=== PATIENT | female | born 2000 | race Caucasian/White ===

== ENCOUNTER 2021-01-08 06:34 | Emergency (ER) | payer BC, OTHER ==
[2021-01-08 06:51] VITALS: BP 126/82; PULSE 91; O2SAT 99
--- NOTE | 2021-01-08 06:51 | ERPHSYRPT ---
- History of Present Illness Time Seen by Provider: 01/08/21 06:49 Source: patient Exam Limitations: no limitations Physician History: Patient is a 20-year-old employee of [employer] who presents with a complaint of a needlestick from an unknown source which occurred to her right index finger 1 month ago. She has apparently been here several times without an order and finally her employer sent her today to have her post exposure work-up. Timing/Duration: week(s) (4) Location: hands (X finger) Allergies/Adverse Reactions: lorazepam [From Ativan] Allergy (Verified 03/22/12 22:08) Home Medications: No Home Meds 03/22/12 [History] Hx Tetanus, Diphtheria Vaccination/Date Given: Yes Hx Influenza Vaccination/Date Given: No Hx Pneumococcal Vaccination/Date Given: No - Review of Systems Constitutional: No Fever, No Chills Eyes: No Symptoms Ears, Nose, & Throat: No Symptoms Respiratory: No Cough, No Dyspnea Cardiac: No Chest Pain, No Edema, No Syncope Abdominal/Gastrointestinal: No Abdominal Pain, No Nausea, No Vomiting, No Diarrhea Genitourinary Symptoms: No Dysuria Musculoskeletal: No Back Pain, No Neck Pain Skin: No Rash Neurological: No Dizziness, No Focal Weakness, No Sensory Changes Psychological: No Symptoms Endocrine: No Symptoms All Other Systems: Reviewed and Negative - Past Medical History Pertinent Past Medical History: Yes Neurological History: No Pertinent History Cardiac History: No Pertinent History Respiratory History: No Pertinent History Endocrine Medical History: No Pertinent History Musculoskeletal History: No Pertinent History Other Medical History: 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 - Past Surgical History Past Surgical History: No - Social History Smoking Status: Never smoker Exposure to second hand smoke: No Drug Use: none Patient Lives Alone: No - Nursing Vital Signs Nursing Vital Signs: Initial Vital Signs Temperature 98.0 F 01/08/21 06:41 Pulse Rate 91 H 01/08/21 06:41 Respiratory Rate 16 01/08/21 06:41 Blood Pressure 126/82 01/08/21 06:41 O2 Sat by Pulse Oximetry 99 01/08/21 06:41 - Physical Exam General Appearance: no apparent distress, alert Eye Exam: PERRL/EOMI, eyes nml inspection Ears, Nose, Throat Exam: normal ENT inspection, pharynx normal, moist mucous membranes Neck Exam: normal inspection, non-tender, supple, full range of motion Respiratory Exam: normal breath sounds, lungs clear, No respiratory distress Cardiovascular Exam: regular rate/rhythm, normal heart sounds Gastrointestinal/Abdomen Exam: soft, mass, No tenderness Back Exam: normal inspection, normal range of motion, No CVA tenderness, No vertebral tenderness Extremity Exam: normal inspection, normal range of motion Neurologic Exam: alert, oriented x 3, cooperative, normal mood/affect, sensation nml, No motor deficits Skin Exam: normal color, warm, dry - Course Nursing assessment & vital signs reviewed: Yes Ordered Tests: Active Orders 24 hr Category Date Time Status Wound Care STAT Care 01/08/21 06:52 Ordered - Progress Progress: unchanged - Departure Departure Disposition: Home Clinical Impression: Needlestick injury accident with exposure to body fluid Condition: Stable Critical Care Time: No Referrals: VAUGHN VIGIL NP [Primary Care Provider] - Instructions: Post-Exposure Prophylaxis
== END 2021-01-08 07:21 | disposition home or self-care (01) ==
LOC: ED 06:34
DX: S61.230A Puncture wound without foreign body of right index finger without damage to nail, initial encounter (principal); W46.1XXA Contact with contaminated hypodermic needle, initial encounter; Y93.89 Activity, other specified; Y92.129 Unspecified place in nursing home as the place of occurrence of the external cause; Y99.0 Civilian activity done for income or pay
CPT/HCPCS: 36415; 86317; 86803; 87340; 87389; 99283